=== PATIENT | male | born 1970 | race Caucasian/White ===

== ENCOUNTER 2017-01-19 18:27 | Emergency (ER) | payer MEDICAID ==
[~2017-01-19] VITALS: Ht 180.3 cm; Wt 65.8 kg
[2017-01-19 18:43] VITALS: BP 134/78; PULSE 98; RESP 14; TEMP 98.4; O2SAT 100
--- NOTE | 2017-01-19 19:11 | NUR ---
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
[2017-01-19] MEDS ORDERED: ACETAMINOPHEN 500 MG TABLET PO ONE (19:15)
--- NOTE | 2017-01-19 19:30 | NUR ---
PT TO H1 FOR RE EVAL
--- NOTE | 2017-01-19 19:30 | NUR ---
Pt ambulatory, a/o x 4, c/o pain, 6/10 ps, to rt plantar area s/p jumpimg onto a marble a week ago. Pt took pain meds, motrin 4 hrs ago with some relief. Pt denied any tingling sensation, no open wounds, +mild swelling to affected area. Pt reported pain worse on ambulation. V/S within normal level.
[2017-01-19] MEDS ORDERED: DIPHENHYDRAMINE HCL 12.5 MG/5 ML UDC PO ONE (19:45)
[2017-01-19 21:39] VITALS: BP 132/76; PULSE 95; RESP 17; TEMP 98.4; O2SAT 100
--- NOTE | 2017-01-19 21:39 | NUR ---
Patient given written and verbal discharge instructions and verbalizes understanding. ROSALES Simms discussed with patient the results and treatment provided. Patient in stable condition. ID arm band removed. Rx of given. Patient educated on pain management and to follow up with PMD. Pain Scale 4/10. Opportunity for questions provided and answered.
== END 2017-01-19 21:39 | disposition home or self-care (01) ==
LOC: SED 18:27
DX: S90.31XA Contusion of right foot, initial encounter (principal); F17.200 Nicotine dependence, unspecified, uncomplicated; Y93.39 Activity, other involving climbing, rappelling and jumping off; Y93.89 Activity, other specified; Y99.8 Other external cause status; Y92.89 Other specified places as the place of occurrence of the external cause
CPT/HCPCS: 99284

== ENCOUNTER 2017-09-13 11:56 | Emergency (ER) | payer MEDICAID ==
[~2017-09-13] VITALS: Ht 180.3 cm; Wt 61.2 kg
[2017-09-13 12:10] VITALS: BP_SYST 127
[2017-09-13] MEDS ORDERED: KETOROLAC TROMETHAMINE 30 MG VIAL IVP ONE (13:45)
[2017-09-13 13:52] LABS: BASOPHILS # (AUTO) 0.1 K/uL (0.0-0.2); EOSINOPHILS # (AUTO) 0.2 K/uL (0.0-0.4); EOSINOPHILS % (AUTO) 3.4 % (0.0-4.0); HEMATOCRIT 41.2 % (36-54); HEMOGLOBIN 13.6 g/dL (14.0-18.0); LYMPHOCYTES # (AUTO) 1.1 K/uL (1.0-5.5); LYMPHOCYTES % (AUTO) 17.5 % (20.5-51.5); MEAN CORPUSCULAR HEMOGLOBIN 29 pg (27-31); MEAN CORPUSCULAR HGB CONC 33 % (32-36); MEAN CORPUSCULAR VOLUME 89 fL (79.0-98.0); MONOCYTES # (AUTO) 0.8 K/uL (0.0-1.0); MONOCYTES % (AUTO) 12.9 % (1.7-9.3); NEUTROPHILS # (AUTO) 4.2 K/uL (1.8-7.7); NEUTROPHILS % (AUTO) 65.2 % (40.0-70.0); PLATELET COUNT (AUTO) 255 K/uL (130-430); RED BLOOD CELL COUNT(AUTO) 4.64 MIL/uL (4.2-6.2); RED CELL DISTRIBUTION WIDTH 12.9 % (9.0-15.0); WHITE BLOOD COUNT (AUTO) 6.4 K/uL (4.8-10.8)
[2017-09-13 14:12] LABS: CALCIUM 9.5 mg/dL (8.4-11.0); CREATININE 0.88 mg/dL (0.55-1.30); POTASSIUM 4.3 mmol/L (3.5-5.1)
[2017-09-13 14:17] LABS: ALBUMIN 3.8 g/dL (3.4-4.8); TOTAL BILIRUBIN 0.8 mg/dL (0.0-1.0)
[2017-09-13 14:27] LABS: ERYTHROCYTE SEDIMENTATION RATE 2 MM/HR (0-15)
[2017-09-13 15:37] VITALS: BP_SYST 96
== END 2017-09-13 15:37 | disposition home or self-care (01) ==
LOC: SED 11:56
DX: M25.552 Pain in left hip (principal); I10 Essential (primary) hypertension; R60.0 Localized edema; F17.210 Nicotine dependence, cigarettes, uncomplicated; Z71.6 Tobacco abuse counseling
CPT/HCPCS: 36415; 71010; 73700; 80053; 83605; 83880; 85025; 85651; 96374; 99285; J1885

== ENCOUNTER 2019-07-06 16:48 | Emergency (ER) | payer MEDICAID ==
[~2019-07-06] VITALS: Ht 180.3 cm; Wt 65.8 kg
[2019-07-06 17:13] VITALS: BP_SYST 128
[2019-07-06] MEDS ORDERED: BACITRACIN 1 GM OINT TP ONE ×2 (17:45→17:48)
[2019-07-06] MEDS ORDERED: KETOROLAC TROMETHAMINE 30 MG VIAL IM ONE (17:45)
[2019-07-06] MEDS ORDERED: ACETAMINOPHEN 500 MG TABLET PO ONE (18:30)
[2019-07-06 18:45] VITALS: BP_SYST 128
== END 2019-07-06 18:45 | disposition home or self-care (01) ==
LOC: SED 16:48
DX: S30.810A Abrasion of lower back and pelvis, initial encounter (principal); V17.4XXA Pedal cycle driver injured in collision with fixed or stationary object in traffic accident, initial encounter; Y93.89 Activity, other specified; Y92.89 Other specified places as the place of occurrence of the external cause; Y99.8 Other external cause status
CPT/HCPCS: 72128; 72131; 99284; J1885

== ENCOUNTER 2022-10-29 02:54 | Emergency (ER) | payer MEDICAID ==
[~2022-10-29] VITALS: Ht 180.3 cm; Wt 65.8 kg
[2022-10-29 03:10] VITALS: BP_SYST 145
--- NOTE | 2022-10-29 03:12 | NUR ---
Patient to ER bed 7 to gown for evaluation. Side rails up. Report given to Jay KEITH.
--- NOTE | 2022-10-29 03:16 | NUR ---
TANA Kaba at bedside examining patient.
[2022-10-29 04:35] LABS: BASOPHILS % (AUTO) 0.9 % (0.0-2.0); EOSINOPHILS # (AUTO) 0.2 K/uL (0.0-0.4); EOSINOPHILS % (AUTO) 3.5 % (0.0-4.0); HEMOGLOBIN 13.8 g/dL (14.0-18.0); LYMPHOCYTES # (AUTO) 1.4 K/uL (1.0-5.5); MEAN CORPUSCULAR HEMOGLOBIN 29 pg (27-31); MEAN CORPUSCULAR HGB CONC 34 % (32-36); MEAN CORPUSCULAR VOLUME 87 fL (79.0-98.0); MONOCYTES # (AUTO) 0.6 K/uL (0.0-1.0); MONOCYTES % (AUTO) 11.8 % (1.7-9.3); NEUTROPHILS # (AUTO) 3.1 K/uL (1.8-7.7); NEUTROPHILS % (AUTO) 57.8 % (40.0-70.0); PLATELET COUNT (AUTO) 271 K/uL (130-430); RED BLOOD CELL COUNT(AUTO) 4.72 MIL/uL (4.2-6.2); RED CELL DISTRIBUTION WIDTH 13.6 % (9.0-15.0); WHITE BLOOD COUNT (AUTO) 5.3 K/uL (4.8-10.8)
[2022-10-29] MEDS ORDERED: iohexoL 350 mgI/mL, 100 ML INFUS..BTL IV ONE (04:39)
[2022-10-29 04:50] LABS: ANION GAP 5 (5-15); CALCIUM 9.1 mg/dL (8.4-11.0); CHLORIDE 102 mmol/L (98-107); CREATININE 1.05 mg/dL (0.55-1.30); GLUCOSE 100 mg/dL (70-99); UREA NITROGEN, BLOOD 17 mg/dL (8-21)
[2022-10-29 04:54] LABS: INR 0.9 (0.80-1.20); PROTHROMBIN TIME 9.4 SECS (9.5-12.5)
[2022-10-29 04:55] LABS: GFR AFRICAN AMERICAN 96 mL/min (>90)
[2022-10-29 04:58] LABS: ALANINE AMINOTRANSFERASE 21 U/L (12-78); ALBUMIN 4.2 g/dL (3.4-4.8); ASPARTATE AMINOTRANSFERASE 23 U/L (10-37); TOTAL BILIRUBIN 0.4 mg/dL (0.0-1.0)
[2022-10-29 06:31] VITALS: BP_SYST 131
--- NOTE | 2022-10-29 06:32 | NUR ---
Patient given written and verbal discharge instructions and verbalizes understanding. ER MD discussed with patient the results and treatment provided. Patient in stable condition. ID arm band removed. IV catheter removed intact and dressing applied, no active bleeding. Rx of NONE given. Patient educated on pain management and to follow up with PMD. Pain Scale . Opportunity for questions provided and answered. Medication side effect fact sheet provided.
== END 2022-10-29 07:34 | disposition home or self-care (01) ==
LOC: SED 02:54
DX: H54.62 Unqualified visual loss, left eye, normal vision right eye (principal); F15.10 Other stimulant abuse, uncomplicated; F17.200 Nicotine dependence, unspecified, uncomplicated; Z79.899 Other long term (current) drug therapy
CPT/HCPCS: 99285; 70496; 71045; 80053; 82962; 85025; 85610; 85730; 84484; 36415; 93005; 70498; 70450; 76376; Q9967